=== PATIENT | female | born 1990 | race Two or more races ===

== ENCOUNTER 2023-04-29 19:33 | Observation (INO) | payer OTHER ==
[~2023-04-29] VITALS: Ht 157.5 cm; Wt 65.8 kg
== END 2023-04-29 20:41 | disposition home or self-care (01) ==
LOC: LDRP 19:33
PROVIDERS: ADMIT Obstetrics & Gynecology; ATTEND Obstetrics & Gynecology
DX: O26.892 Other specified pregnancy related conditions, second trimester (principal); R10.31 Right lower quadrant pain; Z98.891 History of uterine scar from previous surgery; Z3A.20 20 weeks gestation of pregnancy
CPT/HCPCS: 59025; 81002; 94760; G0378

== ENCOUNTER 2023-06-09 18:18 | Observation (INO) | payer OTHER | END 2023-06-09 20:14 | disposition home or self-care (01) | LOC: LDRP 18:18 | PROVIDERS: ADMIT Obstetrics & Gynecology; ATTEND Obstetrics & Gynecology | DX: O26.852 Spotting complicating pregnancy, second trimester (principal); O26.892 Other specified pregnancy related conditions, second trimester; R10.9 Unspecified abdominal pain; Z3A.26 26 weeks gestation of pregnancy | CPT/HCPCS: 59025; 81002; 94760; G0378 ==